=== PATIENT | male | born 2005 | race Asian ===

== ENCOUNTER 2025-05-11 08:30 | Outpatient (AMB) | payer OTHER, SELFPAY ==
--- NOTE | 2025-05-11 08:19 | A.OFFPC_ITS ---
Vital Signs 05/11/25 08:38 Height 5 ft 7.5 in Weight 166 lb BMI 25.6 BP 122/80 Blood Pressure Location Lt brachial Position Sitting Pulse 65 Pulse Source Pulse Oximeter Temp 97.7 F Temp Source Temporal Artery Scan Pulse Oximetry (%) 99 Oxygen Delivery Method Room Air Intake Visit Reasons: Annual PE-new Ballistic Technician Required: No Accompanied by: Self / Same As Patient Allergies No Known Allergies Allergy (Verified 05/11/25 08:19) Tobacco use date assessed: 05/11/25 Dental Screening Dental Screen Date: 05/11/25 Did you have a dental visit in the last 12 months?: Yes Did you have a dental problem in the last 6 months where you did not have access to dental care?: No HPI HPI Comments History of Present Illness Details The patient is a 19-year-old male presenting with migraines and eye pain. He reports that bright lights from the sun and computer screens trigger migraines and cause eye pain, a problem he has experienced for years since he started driving. These episodes are occasionally accompanied by nausea and vo miting. He has tried using sunglasses and Tylenol for relief, but these measures have not been effective. He denies any history of head trauma. The patient's other medical history includes acne, for which he is seeing a electric distribution checker and is prescribed clindamycin, disinodate, ketoconazole, and tretinoin. He has allergies to kiwi, chris, and peaches, which cause itching, as well as seasonal allergies. He reports no other past medical conditions or surgeries. There is no family history of diabetes, cancer, or heart disease. He smokes marijuana occasionally and drinks alcohol about once a month, consuming around five drinks per occasion. He denies having more than six drinks in a single session within the past six months. Medical History: - Migraines - Acne - Allergies to fruits (kiwi, chris, pea ches) and seasonal allergies Surgical History: - No history of surgeries reported Medications: - Clindamycin for acne - Disinodate for acne - Ketoconazole for acne - Tretinoin for acne - Tylenol as needed for migraines Family History: - Denies family history of diabetes, can cers, and heart disease Social History: - Marijuana: Smokes occasionally - Alcohol: Drinks occasionally, about on ce a month, consuming approximately 5 drinks per session - Reports he has not had more than 6 dri nks in one session in the past 6 months [facility] Medical History (Updated 05/11/25 @ 08:53 by Temo Law MD) Acne Migraines Family History (Updated 05/11/25 @ 08:42 by Shital Caldera MA) Mother No problems noted. Father No problems noted. Social History Housing: House Patient Tobacco Use Status: Never used Tobacco e-Cigarette/Vaping Use: Never Used service: No Current occupational status: employed Cognitive needs: No Hearing needs: No Vision needs: No Questionnaire PHQ-9 Over the last 2 weeks, how often have you been bothered by any of the following problems? 1. Little interest or pleasure in doing things: not at all 2. Feeling down, depressed, or hopeless: not at all 3. Trouble falling or staying asleep, or sleeping too much: not at all 4. Feeling tired or having little energy: not at all 5. Poor appetite or overeating: not at all 6. Feeling bad about yourself - or that you are a failure or have let yourself o r your family down: not at all 7. Trouble concentrating on things, such as reading the newspaper or watching television: not at all 8. Moving or speaking so slowly that other people could have noticed. Or the opposite - being so fidgety or restless that you have been moving around a lot more than usual: not at all 9. Thoughts that you would be better off or of hurting yourself in some way: not at all Total score: 0 Depression Screening Interpretation: Negative Depression Screening Done: Yes 36245 - PHQ-9 Billing: Yes Source: Developed by Drs. Genaro Farias, Nemo Bertrand, Yong tolliver nd colleagues, with an educational salima from [employer]. Thrive Questionnaire Date Thrive assessed: 05/11/25 I am a: Patient What is your living situation today?: I have a steady place to live Within the past 12 months, did the food you bought not last and you didn't have the money to get more?: Never true Within the past 12 months, did you worry whether your food would run out before you got money to buy more?: Never true Do you have trouble paying for medicines?: No Do you have trouble getting transportation to medical appointments?: No Do you have trouble paying your heating and electricity bill?: No Do you have trouble taking care of your child, family member or friend?: No Do you have trouble with day-to-day activities such as bathing, preparing meals, shopping, managing finances, etc.?: No Are you currently unemployed and looking for a job?: No Are you interested in more education?: No THRIVE Score: 0 AUDIT C Alcohol Use Questionnaire (AUDIT-C) 1. How often do you have a drink containing alcohol?: Monthly or less 2. How many drinks containing alcohol do you have on a typical day when you are drinking?: 5 or 6 3. How often do you have six or more drinks on one occasion?: Never Total Score: 3 Score Reviewed/Action Taken: Yes ELAN-7 AMB Questionnaire ELAN-7 Date ELAN - 7 assessed: 05/11/25 Feeling nervous, anxious, or on edge: 0 = Not at all Not being able to stop or control worryin = Not at all Worrying too much about different things: 0 = Not at all Trouble relaxin = Not at all Being so restless that it is hard to sit still: 0 = Not at all Becoming easily annoyed or irritable: 0 = Not at all Feeling afraid as if something awful might happen: 0 = Not at all Total ELAN-7 score (0-4 normal; 5-9 mild; 10-14 moderate; 15-21 severe): 0 Source: Developed by Drs. Genaro Farias, Nemo Bertrand, Yong Villalobos and colleagues, with an educational salima from [employer]. ELAN-7 Assessment Billing ELAN-7 Assessment Tool: ELAN-7 Assessment 55952 Review of Systems Narrative - Neurological: Reports migraines triggered by bright lights. Denies head trauma. - HEENT: Reports eye pain and strain with computer use. - Gastrointestinal: Reports occasional nausea and vomiting associated with migraines. - Allergic/Immunologic: Reports seasonal allergies and allergies to kiwi, chris, and peaches, causing itching. - Constitutional: Denies generalized chest pain or shortness of breath. All systems reviewed & are unremarkable except as reviewed in HPI and above Physical exam (Primary Care) Vital Signs: Last Vital Signs Temp 97.7 F 05/11/25 08:38 Pulse 65 05/11/25 08:38 BP 122/80 05/11/25 08:38 Pulse Ox 99 05/11/25 08:38 Oxygen Delivery Method Room Air 05/11/25 08:38 BMI result Body Mass Index 25.6 Tobacco/Smoking Status: Tobacco use Status Tobacco use date assessed 05/11/25 05/11/25 08:21 Patient Tobacco Use Status Never used Tobacco 05/11/25 08:21 e-Cigarette/Vaping Use Never Used 05/11/25 08:21 PHQ-9: PHQ-9 Score PHQ-9: Total score 0 05/11/25 08:47 Depression Screening Interpretation: Negative Thrive Assessment: Date of Thrive Assessment Date Thrive assessed 05/11/25 05/11/25 08:21 Narrative General: Alert and oriented, Well nourished, No acute distress. Eye: Pupils are equal, round and reactive to light, Intact accommodation, Extraocular movements are intact, Normal conjunctiva, Vision unchanged, Reports migraines and eye pain with bright lights and computer use. HENT: Normocephalic, Atraumatic, Tympanic membranes are clear, Normal hearing, Oral mucosa is moist, No pharyngeal erythema, Ear canals patent. Respiratory: Lungs CTA bilaterally, No wheeze, Respirations are non-labored. Cardiovascular: Regular rate, Regular rhythm, S1 auscultated, S2 auscultated, No murmur, Good pulses equal in all extremities, Normal peripheral perfusion, No edema. Gastrointestinal: Soft, Non-tender, Non-distended, Normal bowel sounds, No organomegaly, Occasional nausea and vomiting reported. Musculoskeletal: Normal range of motion, Normal strength, No tenderness, No swelling, No deformity, Normal gait. Integumentary: Warm, Dry, [place], Intact. Neurologic: Alert, Oriented, Normal sensory, Normal motor function, No focal defects, Cranial Nerves II-XII are grossly intact, Normal deep tendon reflexes. Psychiatric: Cooperative, Appropriate mood & affect, Normal judgment. Coding Level of Care Code New Pt Level 2 (65726) Diagnoses Migraine without aura and without status migrainosus, not intractable G43.009 Migraine type: without aura Status migrainosus presence: without status migrainosus Intractability: not intractable Acne, unspecified acne type L70.9 Acne type: unspecified acne Additional Codes PHQ-9 - 77440 - PHQ-9 Billing: Yes ([id number]) ELAN-7 Assessment Billing - ELAN-7 Assessment Tool: ELAN-7 Assessment 81319 ([id number]) Assessment & Plan Assessment & Plan (1) Migraines: Comment: - The patient presents with a history of migraines triggered by photophobia, associated with eye pain, nausea, and vomiting. - Prior attempts at management with sunglasses and Tylenol have been ineffective. - The plan is to advise the patient to avoid stressors and to install tinted glass in his car to reduce light exposure while driving. - We will then reassess. Code(s): G43.909 - Migraine, unspecified, not intractable, without status migrainosus Category: Medical Qualifiers: Migraine type: without aura Status migrainosus presence: without status migrainosus Intractability: not intractable Qualified Code(s): G43.009 - Migraine without aura, not intractable, without status migrainosus (2) Acne: Comment: - The patient is under the care of a electric distribution checker for this condition. - The plan is for him to continue following up with his electric distribution checker. Code(s): L70.9 - Acne, unspecified Category: Medical Qualifiers: Acne type: unspecified acne Qualified Code(s): L70.9 - Acne, unspecified Plan: Health Maintenance: - Advised to avoid migraine triggers and stressors. - Counseled to reduce alcohol consumption. - Recommended continuing care with dermatology for acne management. Patient was informed and verbally consented to the use of an ambient scribe for clinic note documentation during this visit. Plan I discussed the patient's primary complaint of migraines, which are triggered by bright lights and have been ongoing for years. I advised avoiding stressors and recommended trying tinted glass for his car to help with light sensitivity while driving, noting that standard sunglasses have not been effective. We agreed to monitor the effectiveness of this approach. I also encouraged him to continue following up with his electric distribution checker for his acne and counseled him to reduce his alcohol consumption. The patient indicated understanding and agreement with the proposed plan. Orders: Orders Complete Blood Count Auto Diff Today Z76.89 - Persons encountering health services in other specified circumstances Comprehensive Met. Panel Today Z76.89 - Persons encountering health services in other specified circumstances Patient Instructions: - Avoid things that seem to trigger your migraines, like stress and bright lights. - Consider getting tinted glass for your car to help with eye pain and headaches from the sun while you drive. - Continue to see your electric distribution checker for your acne treatment. - You should cut down on your alcohol drinking.
[2025-05-11 08:38] VITALS: BP 122/80; PULSE 65; TEMP 36.5; O2SAT 99; BMI 25.6
--- OUTSIDE RECORDS SUMMARY | 2025-05-11 08:49 | XMS_ITS ---
Author Name [facility] Organization Unknown Care Team Organization Name Specialty Phone Email Start Date End Da te [facility] YOLANDA OLIVO Primary Care 11/20/2022 03/03/2024 [facility] Becca Kaufman Primary Care 10/17/2022 024 [facility] Sixto, PROVIDER Primary Care 05/23/202202/13
--- OUTSIDE RECORDS SUMMARY | 2025-05-11 08:49 | XMS_ITS | Clinical Summary ---
Author Organization Patient Business Ser [facility] Address [address] [place] [address] Care Team Providers Care Aquaculture Farmer Name Role Phone Eric Montemayor MD Primary Care Provider Allergies Active Allergy Reactions Criticality Noted Date Comments Kiwi (Actinidia Chinensis) 6 Irritation of lips Medications clindamycin-kristyn zoyl peroxide (BENZACLIN) gel Apply sparingly to affected areas 1 - 2 times a day as needed 1 Active tretinoin (RETIN-A) 0.05 % cream Apply pea-sized amount to dry skin on face at bedtime and then cover with a non-comedogenic moisturizer 1 Active Active Problems Problem Noted Date Diagnosed Date Transaminitis 08/14/2022 Obsessive-compulsive behavior 08/09/2022 Acne vulgaris 11/11/2020 Wears glasses 11/11/2020 Low vision of right eye with normal vision in contralateral eye 10/06/2014 Immunizations Immunization Administration Dates Next Due DTaP (Infanrix) 6wks to less than 7yo ,03/17/2005,04/11/2004,02/21 LDsT-DPO-OAJ (Pentacel) 2mo to less than 5yo 03/17/2005,06/13/2004,04/11/2004,02/21 CEiL-IsdX-GUL (Pediarix) 6 w ks to less than 7yo 06/13/2004 HPV 9-valent (Gardisil) 9yo to less than 46yo 01/03/2018,01/02/2017 Hepatitis A Pediatric (Havri x; Vaqta) 12mo to less than 19yo 01/04/2018,09/16/2009 Hepatitis B Pediatric (Enger ix B; Recombivax HB) to less than 20 yo 01/12/2004,2003 IPV Inactivated polio (Ipol) 6wks and older 12/14/2008,04/11/2004,02/22/2004 Influenza trivalent, 0.5mL, preservative free (Fluarix; FluLaval; Fluzone) ages 6mo and older (Afluria) 3 years and older 04/25/2018,05/04/2017 Influenza trivalent, with pr eservative (Fluzone; Afluria) 6mo and older 07/24/2005,06/23/2005 MMR, measles mumps and rubel la Live (Priorix; M-M-R II) 12mo and older 02/04/2008,12/16/2004 Meningococcal MCV4P 11/11/2020,12/31/2015 Pneumococcal Conjugate Vacci ne, 7 Valent 03/17/2005,06/13/2004,04/11/2004,02/21 Tdap Tetanus diptheria acell ular pertussis (Boostrix; Adacel) 7yo and older 12/31/2015 Varicella live (Varivax) 12m o and older 02/04/2008,12/16/2004 Surgical History Surgery Date Site/Laterality Comments OTHER SURGICAL HISTORY PROCEDURE: DENIES PREVIOUS SURGERY Medical History Medical History Date Comments Eczema DX:Eczema Asthma DX:Asthma; COMME NT: resolved Behavior problem in child 10/07/2018 DX:Beh avior problem in child; COMMENT: 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 Travel advice encounter 01/03/2018 DX:Kasie kan advice encounter; COMMENT: 01/30: will be going to [place] for a month Family History Medical History Relation Name Comments No Known Problems Aunt No Known Problems Brother No Known Problems Father No Known Problems Maternal Grandfather No Known Problems Maternal Grandmother No Known Problems Mother No Known Problems Other No Known Problems Paternal Grandfather No Known Problems Paternal Grandmother No Known Problems Sister 1 No Known Problems Sister 2 No Known Problems Sister 3 Eczema Sister 4 chris No Known Problems Uncle Blindness Neg Hx Cataracts Neg Hx Glaucoma Neg Hx Macular degeneration Neg Hx Strabismus Neg Hx Relation Name Status Comments Aunt Brother Alive Father Alive Maternal Grandfather Maternal Grandmother Mother Alive Other Paternal Grandfather Paternal Grandmother Sister 1 Alive Sister 2 Alive Sister 3 Alive Sister 4 Uncle Social History Tobacco Use Types Packs/Day Years Used Date Smoking Tobacco: Never Smokeless Tobacco: Never Alcohol Use Standard Drinks/Week Comments Yes 0 (1 standard drink = 0.6 oz pur e alcohol) once/month Housing Instability Answer Date Recorde d Are you worried that in the next 2 months you may not have stable housing? No 10/09/2024 Food Access & Nutrition Answer Date Rec orded Do you have access to a vari ety of food including fruits and vegetables? No 10/09/2024 Health Literacy Answer Date Recorded How often do you need to hav e someone help you when you read instructions, pamphlets, or other written material from your doctor or pharmacy? Never 10/09/2024 Caregiver: How often do you need to have someone help you when you read instructions, pamphlets, or other written material from your doctor or pharmacy? Not on file 10/09/2024 Financial Risk Answer Date Recorded How hard is it for you to pa y for the very basics like food, housing, medical care, and air conditioning / heating? Not very hard 10/09/2024 Transportation Answer Date Recorded Has the lack of transportati on kept you from meetings, work, or from getting things needed for daily living? No Has the lack of transportati on kept you from medical appointments or from getting medications? No 10/09/2024 Social Isolation Answer Date Recorded How often do you feel lonely or isolated from th ose around you? Never 10/09/2024 Food Risk Answer Date Recorded Within the past 12 months we worried whether our food would run out before we got money to buy more. Never true 10/09/2024 Within the past 12 months th e food we bought just didn't last and we didn't have money to get more. Never true 10/09/2024 Dependent Care Answer Date Recorded Do you need help finding or paying for care for your loved ones. For example, exceptional children's teacher or elderly care for an older adult? No 10/09/2024 Education Answer Date Recorded Do you think completing more education or training, like finishing a GED, going to college, or learning a trade, would be helpful for you? N/A 10/09/2024 Employment and Income Answer Date Recor ded During the last four weeks, have you been actively looking for work? No 10/09/2024 Living Situation Answer Date Recorded What is your living situation? Unrecognized valu e 10/09/2024 Sex and Gender Information Value Date Recorded Sex Assigned at Male 05/23/2024 4:18 PM EST Legal Sex Male 3:21 PM EDT Gender Identity Male 05/23/2024 4:18 PM EST Sexual Orientation Straight 05/23/2024 4: 18 PM EST Obstetrics History Last Filed Vital Signs Vital Sign Reading Time Taken Comments Blood Pressure 99/67 10/09/2024 8:53 AM EDT Pulse 70 10/09/2024 8:53 AM EDT Temperature 35.8 C (96.5 F) 10/09/2024 8:53 AM EDT Respiratory Rate 14 10/09/2024 8:53 AM EDT Oxygen Saturation - - Inhaled Oxygen Concentration - - Weight 74.6 kg (164 lb 6.4 oz) 10/09/2024 8:53 A M EDT Height 170.2 cm (5' 7 ) 10/09/2024 8:53 AM EDT Body Mass Index 25.75 10/09/2024 8:53 AM EDT Plan of Treatment Upcoming Encounters Date Type Department Care Team (Late st Contact Info) Description 10/12/2025 4:00 PM EDT Office Visit Adult Medicine [facility] [address] [place], [place] [phone] Eric Montemayor MD [address] [place], [place] Health Maintenance Due Date Last Done Comments COVID-19 Vaccine ( season) 2025 09/30/2021, 12/29/2020, 2020 Annual Well Child Visit (3-21 years old) 10/09/2025 10/09/2024, 10/09/2024, 08/09/2022, Additional history exists Social Influencers of Health Screening 10/09/2025 10/09/2024 DTaP,Tdap,and Td Vaccines (7 - Td or Tdap) 12/30/2025 12/31/2015, 12/14/2008, 03/17/2005, Additional history exists Cholesterol Screening (Lipid Panel) 10/09/2029 10/09/2024, 08/09/2022 RSV Immunization Adult Patients (1 - 1-dose 75+ series) 12/07/2078 Hepatitis B Vaccines Completed 06/13/2004, 01/12/2004, 2003 HIB Vaccines Completed 03/17/2005, 08/2004, 06/13/2004, Additional history exists Pneumococcal Vaccine: Pediatrics (0 to 5 Years) and At-Risk Patients (6 to 49 Years) Completed 03/17/2005, 06/13/2004, 04/11/2004, Additional history exists MMR Vaccines Completed 02/04/2008, 12/16/2004 Varicella Vaccines Completed 02/04/2008, 12/16/2004 IPV Vaccines Completed 12/14/2008, 08/2004, 06/13/2004, Additional history exists HPV Vaccines Completed 01/03/2018, 01/02/2017 Hepatitis A Vaccines Completed 01/04/2018, 09/17/19 10 Influenza Vaccine Discontinued 06/29/2020, , 05/04/2017, Additional history exists Meningococcal ACWY Vaccine Completed 11/11/2020, Depression Screening Completed 10/09/2024 HIV Screening Completed 10/09/2024 Hepatitis C Screening Completed 10/09/2024 Meningococcal B Vaccine Discontinued RSV Immunization Patients Under 20 months Aged Out No longer eligible based on patient's age to complete this topic Procedures Procedure Name Priority Date/Time Associated Diagnosis Comments HEPATITIS PANEL, ACUTE WITH REFLEX TO CONFIRMATION Routine 10/09/2024 10:54 AM EDT Screen for sexually transmitted diseases HIV 1, 2 ANTIBODY, P24 ANTIGEN WITH REFLEX TO DIFFERENTIATION Routine 10/09/2024 10:54 AM EDT Screen for sexually transmitted diseases LIPID PANEL WITH REFLEX TO DIRECT LDL Routine 10/09/2024 10:54 AM EDT Screening for lipid disorders from Last 3 Months or Most Recently Relevant to Health Maintenance Results * HIV 1,2 antibody, p24 antigen with reflex to differentiation (10/09/2024 10:54 AM EDT) Pathologist [facility] HIV Combo AB/AG Negative Negative LAB CHEMISTRY METHOD 10/09/2024 4:20 PM EDT [facility] Blood Venous blood specimen / Unknown Venipuncture / Unknown 10/09/2024 10:54 AM EDT 10/09/2024 10:54 AM EDT Narrative [facility] - 10/09/2024 4:20 PM EDT This assay is a 4th generation assay allowing for earlier detection of HIV infection by detecting the presence of the HIV-1 p24 antigen as well as the traditional antibodies to HIV type 1 (including group O) and type 2. Use of a 4th generation assay is the current CDC recommendation for HIV screening. us Eric Montemayor MD LAB BLOOD ORDERABLES F inal Result [facility] [address] [place] [address], [place] [phone] * (ABNORMAL) Lipid panel with reflex to direct LDL (10/09/2024 10:54 AM EDT) Pathologist [facility] Cholesterol 203(H) 0 - 200 mg/dL LAB CHEMISTRY METHOD 10/09/2024 2:33 PM EDT [facility] Triglycerides 74 0 - 150 mg/dL LAB CHEMISTRY METHOD 10/09/2024 2:33 PM EDT [facility] HDL 48 >=40 mg/dL LAB CHEMISTRY METHOD 10/09/2024 2:33 PM EDT [facility] LDL Calculated 140(H) 0 - 100 mg/dL LAB CHEMISTRY METHOD 10/09/2024 2:33 PM EDT [facility] VLDL Cholesterol Rishi 14.8 mg/dL LAB CHEMISTRY METHOD 10/09/2024 2:33 PM EDT [facility] Non HDL Chol. (LDL+VLDL) 155(H) <145 mg/dL LAB CHEMISTRY METHOD 10/09/2024 2:33 PM EDT [facility] Chol/HDL Ratio 4.2 0.0 - 4.4 LAB CHEMISTRY METHOD 10/09/2024 2:33 PM EDT [facility] Blood Venous blood specimen / Unknown Venipuncture / Unknown 10/09/2024 10:54 AM EDT 10/09/2024 10:54 AM EDT Eric Montemayor MD LAB BLOOD ORDERABLES F inal Result Performing Organization Address City/[facility]/ZIP Co de Phone Number [facility] [address] [place] [address], [place] [phone] * Hepatitis panel, acute with reflex to confirmation (10/09/2024 10:54 AM EDT) Hepatitis B Surface Ag Negative Negative LAB CHEMISTRY METHOD 10/09/2024 4:21 PM EDT [facility] Hepatitis A Antibody IgM Negative Negative LAB CHEMISTRY METHOD 10/09/2024 4:21 PM EDT [facility] Hep B Core IgM Negative Negative LAB CHEMISTRY METHOD 10/09/2024 4:21 PM EDT [facility] Hepatitis C Antibody Negative Negative LAB CHEMISTRY METHOD 10/09/2024 4:21 PM EDT [facility] Blood Venous blood specimen / Unknown Venipuncture / Unknown 10/09/2024 10:54 AM EDT 10/09/2024 10:54 AM EDT us Eric Montemayor MD LAB BLOOD ORDERABLES F inal Result Performing Organization Address City/[facility]/ZIP Co de Phone Number [facility] [address] [place] [address], [place] [phone] from Last 3 Months or Most Recently Relevant to Health Maintenance Insurance [facility] [employer] Care Teams Aquaculture Farmer Relationship Specialty Start Date End Date Eric Montemayor MD [address] [place] [phone] PCP - General 07/31/22
== END 2025-05-11 08:54 | disposition home or self-care (01) ==
LOC: HO.HMCHD 08:30
PROVIDERS: Visit Provider Student in an Organized Health Care Education/Training Program
DX: G43.009 Migraine without aura, not intractable, without status migrainosus (principal); L70.9 Acne, unspecified

== ENCOUNTER → 2025-05-11 08:30 | Outpatient (BNVA) | payer OTHER, SELFPAY | PROVIDERS: Visit Provider Student in an Organized Health Care Education/Training Program | DX: G43.009 Migraine without aura, not intractable, without status migrainosus (principal); L70.9 Acne, unspecified; Z13.31 Encounter for screening for depression; Z13.39 Encounter for screening examination for other mental health and behavioral disorders | CPT/HCPCS: 96127 ==

== ENCOUNTER 2025-05-11 08:55 | Outpatient (REF) | payer OTHER, SELFPAY ==
[2025-05-11 10:38] LABS: MANUAL DIFF FLAG NO
[2025-05-11 10:47] LABS: Hematocrit 51.6 % (42.0-52.0); Hemoglobin 16.8 g/dl (14.0-18.0); Imm Gran Abs Auto 0.03 X10*3/uL (0.00-0.03); Imm Gran Pct Auto 0.5 % (0.0-0.4); Lymphocytes Absolute Auto 2.8 X10*3/uL (1.2-4.9); Mean Corpuscular HGB Conc 32.6 g/dl (31.0-36.0); Mean Corpuscular Hemoglobin 29.4 pg (27.0-33.0); Mean Corpuscular Volume 90.2 fL (80.0-98.0); NRBC Abs Auto 0.000 X10*3/uL (0.0-0.012); NRBC Pct Auto 0.0 /100WBC (0.0-0.2); Platelet Count 228 X10*3/uL (160-400); Red Blood Count 5.72 X10*6/uL (4.60-5.80); White Blood Count 6.4 X10*3/uL (4.8-10.8)
[2025-05-11 11:16] LABS: Alanine Aminotransferase 28 U/L (0-40); Albumin Level 4.8 g/dL (3.5-5.0); Alkaline Phosphatase 59 U/L (39-117); Anion Gap 11 (12-20); Aspartate Amino Transferase 26 U/L (5-37); Blood Urea Nitrogen 19 mg/dL (9-16); Calcium 9.6 mg/dL (8.4-10.2); Carbon Dioxide 26 mmol/L (22-29); Chloride 107 mmol/L (96-108); Estimated Glomerular Filt Rate > 60; Potassium 4.2 mmol/L (3.3-5.1); Sodium 140 mmol/L (135-145); Total Protein 7.8 g/dL (6.5-8.0)
== END 2025-05-11 08:56 | disposition home or self-care (01) ==
LOC: HO.10HDL 08:55
PROVIDERS: Visit Provider Student in an Organized Health Care Education/Training Program
DX: Z76.89 Persons encountering health services in other specified circumstances (principal)
CPT/HCPCS: 36415; 80053; 85025